=== PATIENT | female | born 1990 | race Caucasian/White ===

== ENCOUNTER 2021-05-21 10:52 | Outpatient (RCR) | payer OTHER, SELFPAY ==
[2021-05-21 10:52] VITALS: BMI 36.6
[2021-05-21 10:53] VITALS: BMI 36.6
== END 2021-08-19 23:59 | disposition home or self-care (01) ==
LOC: ANHDMC 10:52
PROVIDERS: PCP Nurse Practitioner Family; Referring Provider Nurse Practitioner Family; Visit Provider Nurse Practitioner Family
DX: Z68.38 Body mass index [BMI] 38.0-38.9, adult (principal); Z71.3 Dietary counseling and surveillance
CPT/HCPCS: 97802